=== PATIENT | female | born 1960 | race Caucasian/White ===

== ENCOUNTER 2018-09-06 12:03 | Emergency (ER) | payer BC ==
[~2018-09-06] VITALS: Ht 162.6 cm; Wt 79.4 kg
[2018-09-06 12:20] VITALS: BP_SYST 112
[2018-09-06] MEDS ORDERED: PREDNISONE 20 MG TABLET PO ONE (13:15)
[2018-09-06] MEDS ORDERED: ALBUTEROL SULFATE 0.083% 2.5 MG/3 ML VIAL.NEB INH ONE (13:15)
[2018-09-06] MEDS ORDERED: IPRATROPIUM BROM 0.5 MG/2.5 ML VIAL.NEB (ATROVENT) INH ONE (13:15)
[2018-09-06 14:25] VITALS: BP_SYST 129
[2018-09-06] MEDS ORDERED: cefTRIAXone 1 GM VIAL IM ONE (15:00)
[2018-09-06] MEDS ORDERED: LIDOCAINE 1%, 20 ML MDV 20 ML ONE (15:42)
== END 2018-09-06 16:00 | disposition home or self-care (01) ==
LOC: SED 12:06
DX: J18.8 Other pneumonia, unspecified organism (principal); F17.200 Nicotine dependence, unspecified, uncomplicated; F03.90 Unspecified dementia, unspecified severity, without behavioral disturbance, psychotic disturbance, mood disturbance, and anxiety; E11.9 Type 2 diabetes mellitus without complications; I10 Essential (primary) hypertension; Z90.49 Acquired absence of other specified parts of digestive tract; Z71.6 Tobacco abuse counseling; Z98.84 Bariatric surgery status
CPT/HCPCS: 71046; 94640; 96372; 99283; J0696; J2001; J7512; J7613

== ENCOUNTER → 2021-10-22 | Emergency (ER) | payer BC, OTHER ==
[~2021-10-22] VITALS: Ht 162.6 cm; Wt 77.1 kg
[~2021-10-22] MED LIST: DIPH-TET-PERTUS Vaccine 0.5 ML VIAL (ADACEL) I.M. ONE
[2021-10-22 13:50] VITALS: BP_SYST 121
== END | disposition home or self-care (01) ==
LOC: SED 13:24
DX: S61.211A Laceration without foreign body of left index finger without damage to nail, initial encounter (principal); W45.8XXA Other foreign body or object entering through skin, initial encounter; Y93.89 Activity, other specified; Y92.89 Other specified places as the place of occurrence of the external cause; Y99.8 Other external cause status
CPT/HCPCS: 90715; 99283